=== PATIENT | male | born 1980 | race Caucasian/White ===

== ENCOUNTER → 2016-05-07 | Outpatient (CLI) | payer OTHER ==
[~2016-05-07] MED LIST: ACET-93 PO; CATHETER FLUSH 10 ML SYR IV PRN; CLIN150C17 PO; CYCL10TA9 PO; DULO60CA6 PO; FAMO20TA5 PO; HYDR50CA PO; IBP800T PO; IOHEXOL 350 MG/ML 100 ML (OMNIPAQUE 350) VIAL IV ONE; LODINE PO; NAPR550T PO; NS 100 ML (IVPB) BAG IV ONE; ONDN4T PO; RANI-515 PO; SCR1T1 PO; TRAM50TA2 PO; TRM50T PO
[2016-05-07 10:10] LABS: ANION GAP 9 MMOL/L (5-14); BLOOD UREA NITROGEN 12 MG/DL (7-18); BUN/CREATININE RATIO 12; CALCIUM 9.1 MG/DL (8.5-10.1); CARBON DIOXIDE 24 MMOL/L (21-32); CHLORIDE 107 MMOL/L (98-107); CREATININE SERUM 1.03 MG/DL (0.60-1.30); GFR ESTIMATED > 60; GLUCOSE 123 MG/DL (70-105); POTASSIUM 3.5 MMOL/L (3.6-5.0); SODIUM 140 MMOL/L (135-145)
--- NOTE | 2016-05-07 12:19 | Diagnostic Imaging Report ---
PROCEDURE: CT chest with contrast only. TECHNIQUE: Multiple contiguous axial images were obtained through the chest after administration of intravenous contrast. INDICATION: COPD, emphysema. History of VSD repair. 75 mL of Omnipaque 350 is administered intravenously. COMPARISON: 09/16/2015. FINDINGS: The aortic root at the sinus level is dilated at 4.7 cm. The heart size is normal. The rest of the thoracic aorta is normal in caliber. No pericardial effusion. Sternotomy wires with healed sternotomy seen with slight deformity of the sternum, possibly pre-existing congenital pectus excavatum related, similar to 03/03/2015, exam. There is no mediastinal mass. No significantly enlarged hilar, mediastinal, or axillary lymph nodes are seen. A 1-cm elongated nodular density in the posterior lateral aspect of the right upper lobe, axial image 20, is seen stable from prior exams including 03/03/2015, and other prior studies. Also focal scarring in the right lung base is noted. There is no significant consolidation or lung mass seen. There is no pleural effusion. Sections in the upper abdomen demonstrate no significant abnormality. IMPRESSION: 1. Stable dilatation of the aortic root at the sinus level measuring 4.7 cm in diameter similar to February 2015 exam. 2. Nodular densities in the right lung base and the right upper lobe are stable from multiple prior exams including 2013 study compatible with scarring. 3. Healed sternotomy and pectus excavatum deformity seen in the anterior chest wall. Dictated by: Dictated on workstation # [id number]
--- NOTE | 2016-05-10 09:29 | ECHOCARDIOGRAPHY REPORT ---
PROCEDURE PHYSICIAN: CARLY BARRAGAN DATE OF PROCEDURE: 05/07/2016 TWO DIMENSIONAL ECHOCARDIOGRAM REPORT PRIMARY PHYSICIAN: Dr. Jimenez OTHER PHYSICIAN: Fabiana Rivera APRN REFERRING PHYSICIAN: ORDERING PHYSICIAN: Lachelle Meyer APRN INDICATION FOR THE PROCEDURE: 1. Shortness of breath. 2. History of VSD repair. 3. Pectus excavatum. MEASUREMENTS DERIVED VALUES LV DIAMETER (LAX) NORMALS NORMALS Diastolic 4.5 (3.6-5.2) Eject. Fract. (60%+/-6%) Systolic (2.3-3.9) Diastolic Vol. % Shortening (0.22-0.42) Systolic Vol. Aortic Root 4.1 IVS THICKNESS Diastolic 0.7 (0.6-1.1) LVPW THICKNESS Diastolic 1.1 (0.6-1.1) LA DIAMETER Systolic 2.5 (2.1-3.7) DESCRIPTION: Two-dimensional echocardiography shows normal global left ventricular systolic function with normal regional wall motion. Left ventricular ejection fraction is approximately 55 to 60%. Aortic, mitral, and tricuspid valve leaflets show good leaflet excursion. Doppler imaging shows trivial to mild tricuspid regurgitation. Pulmonary artery systolic pressure is estimated to be approximately 25 mmHg. There is no Doppler evidence of any significant valvular stenosis. There is no evidence of significant intracardiac shunt on this transthoracic echocardiographic study. 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 CONCLUSIONS: 1. Normal global left ventricular systolic function with an ejection fraction of approximately 55 to 60% 2. Mild enlargement of the aortic root. 3. Slight displacement of the tricuspid valve towards the apex, suggesting mild Ebstein's anomaly without any other significant associated issues. 4. No evidence of any significant intracardiac shunt on this transthoracic echocardiographic study. The patient has a history of septal defect repair (reportedly ventricular septal defect repair). 5. No evidence of any significant valvular stenosis. 6. Trivial to mild tricuspid regurgitation. 7. Pulmonary artery systolic pressure is estimated to be approximately 25 mmHg. Job ID: [id number] Dictated Date: 05/09/2016 11:38:39 Operating Room Assistant Date: 05/10/2016 09:20:05 / blanquita ANDERSON
== END ==
LOC: RAD 09:34
PROVIDERS: ATTEND Nurse Practitioner Family
DX: I77.89 Other specified disorders of arteries and arterioles (principal); Q67.6 Pectus excavatum; J43.8 Other emphysema; Z98.890 Other specified postprocedural states
CPT/HCPCS: 36415; 71260; 80048; 93306

== ENCOUNTER → 2016-05-28 | Outpatient (CLI) | payer OTHER ==
[~2016-05-28] MED LIST changes: -CATHETER FLUSH 10 ML SYR IV PRN; -IOHEXOL 350 MG/ML 100 ML (OMNIPAQUE 350) VIAL IV ONE; -NS 100 ML (IVPB) BAG IV ONE; +RT-ALBUTEROL SULF 2.5 MG/3 ML PRE-MIX VIAL INH ONE
== END ==
LOC: RT 12:40
PROVIDERS: ATTEND Surgery
DX: Z02.71 Encounter for disability determination (principal)
CPT/HCPCS: 94060; 94640; 94729

== ENCOUNTER → 2017-05-25 | Outpatient (CLI) | payer SELFPAY ==
[~2017-05-25] MED LIST changes: -RT-ALBUTEROL SULF 2.5 MG/3 ML PRE-MIX VIAL INH ONE
[2017-05-25 14:22] LABS: BUN/CREATININE RATIO 9; CALCIUM 9.5 MG/DL (8.5-10.1); CARBON DIOXIDE 28 MMOL/L (21-32); CHLORIDE 105 MMOL/L (98-107); CREATININE SERUM 1.05 MG/DL (0.60-1.30); GFR ESTIMATED > 60; GLUCOSE 97 MG/DL (70-105); POTASSIUM 4.5 MMOL/L (3.6-5.0); SODIUM 138 MMOL/L (135-145)
== END ==
LOC: LAB 13:44
PROVIDERS: ATTEND Nurse Practitioner Family
DX: I77.89 Other specified disorders of arteries and arterioles (principal)
CPT/HCPCS: 36415; 80048

== ENCOUNTER → 2017-05-27 | Outpatient (CLI) | payer SELFPAY ==
[~2017-05-27] MED LIST changes: +CATHETER FLUSH 10 ML SYR IV PRN; +IOHEXOL 350 MG/ML 100 ML (OMNIPAQUE 350) VIAL IV ONE; +NS 250 ML (IVPB) BAG IV ONE
--- NOTE | 2017-05-27 09:14 | Diagnostic Imaging Report ---
PROCEDURE: CT chest with contrast only. TECHNIQUE: Multiple contiguous axial images were obtained through the chest after administration of intravenous contrast. INDICATION: Followup ascending aortic enlargement. Comparison is made with prior CT chest from 05/07/2016. No axillary, hilar or mediastinal lymphadenopathy is seen. No pericardial or pleural fluid is detected. Dilatation of the aortic root is again noted, measuring approximately 4.8 cm AP dimension in the axial plane, stable. Mid ascending aorta is approximately 3.5 cm, stable. No dissection is identified. The aortic arch and descending thoracic aorta are normal in caliber. Parenchymal evaluation again demonstrates slightly elongated irregular density in the posterior lateral right upper lobe, image 15 measuring 8-9 mm in size. This is similar to prior exam. There is a linear density in the left lower lobe, similar to prior exam and likely scarring. The density in the posterior lateral right lower lobe is also stable and likely scarring. No new mass is seen. The upper abdomen is unremarkable. IMPRESSION: Stable CT of the chest when compared with prior examination from 05/07/2016. Dictated by: Dictated on workstation # [id number]
== END ==
LOC: RAD 08:23
PROVIDERS: ATTEND Nurse Practitioner Family
DX: I77.89 Other specified disorders of arteries and arterioles (principal); J43.8 Other emphysema; Q67.6 Pectus excavatum
CPT/HCPCS: 71260

== ENCOUNTER → 2017-07-05 | Outpatient (CLI) | payer OTHER ==
[~2017-07-05] MED LIST changes: -CATHETER FLUSH 10 ML SYR IV PRN; -IOHEXOL 350 MG/ML 100 ML (OMNIPAQUE 350) VIAL IV ONE; -NS 250 ML (IVPB) BAG IV ONE
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
== END ==
LOC: RAD 09:53
PROVIDERS: ATTEND Nurse Practitioner Family
DX: M47.816 Spondylosis without myelopathy or radiculopathy, lumbar region (principal); V89.2XXD Person injured in unspecified motor-vehicle accident, traffic, subsequent encounter
CPT/HCPCS: 72148

== ENCOUNTER 2020-08-26 06:41 | Day surgery (SDC) | payer MEDICAID ==
[2020-08-26] VITALS (11 sets, daily range): BP systolic 134–152; BP diastolic 53–99
[~2020-08-26] VITALS: Ht 167 cm; Wt 78.0 kg
[~2020-08-26 06:41] MED LIST changes: -CLIN150C17 PO; +CLIN150C18 PO; -RANI-515 PO; +RANI-609 PO
[2020-08-26] MEDS ORDERED: HEParin (CATH LAB) 2,000 ML IV ONE (06:46)
[2020-08-26] MEDS ORDERED: NS IV 1000 ML 1,000 ML ONE (06:46)
[2020-08-26] MEDS ORDERED: LIDOCAINE 1% INJ 20 ML 20 ML VIAL ONE (06:46)
[2020-08-26] MEDS ORDERED: NS IV 1000 ML 1,000 ML IV SCH ×2 (07:00→10:00)
[2020-08-26 07:20] LABS: HEMATOCRIT 44 % (40-54); HEMOGLOBIN 15.5 g/dL (13.3-17.7); MEAN CORPUSCULAR HEMOGLOBIN 29 pg (25-34); MEAN CORPUSCULAR HGB CONC 35 g/dL (32-36); MEAN CORPUSCULAR VOLUME 83 fL (80-99); MEAN PLATELET VOLUME 8.6 fL (9.0-12.2); PLATELET COUNT 202 10^3/uL (130-400); WHITE BLOOD COUNT 6.9 10^3/uL (4.3-11.0)
[2020-08-26 07:34] LABS: PROTHROMBIN TIME PATIENT 13.6 SEC (12.2-14.7)
[2020-08-26] MEDS ORDERED: OMEP20CA18 PO (07:38)
[2020-08-26] MEDS ORDERED: ASPI-999 PO (07:38)
[2020-08-26] MEDS ORDERED: RT-ALBUINH IH (07:38)
[2020-08-26] MEDS ORDERED: BUDE10.7 IH (07:38)
[2020-08-26] MEDS ORDERED: ACET500P24 PO (07:38)
[2020-08-26 07:43] LABS: ALANINE AMINOTRANSFERASE 31 U/L (0-55); ALBUMIN 4.5 GM/DL (3.2-4.5); ALKALINE PHOSPHATASE 84 U/L (40-136); BILIRUBIN,TOTAL 0.9 MG/DL (0.1-1.0); BUN/CREATININE RATIO 11; CARBON DIOXIDE 26 MMOL/L (21-32); CHLORIDE 103 MMOL/L (98-107); CHOLESTEROL 218 MG/DL (< 200); CREATININE SERUM 1.14 MG/DL (0.60-1.30); GFR ESTIMATED > 60; GLUCOSE 92 MG/DL (70-105); HDL CHOLESTEROL 42 MG/DL (40-60); POTASSIUM 4.1 MMOL/L (3.6-5.0); SODIUM 139 MMOL/L (135-145); TOTAL PROTEIN 7.4 GM/DL (6.4-8.2); TRIGLYCERIDES 150 MG/DL (<150); VLDL CHOLESTEROL 30 MG/DL (5-40)
[2020-08-26] MEDS ORDERED: fentaNYL INJ 100 MCG/2 ML AMP ONE (07:45)
[2020-08-26] MEDS ORDERED: MIDAZOLAM 5 MG/5 ML (VERSED) VIAL ONE (07:45)
--- NOTE | 2020-08-26 09:55 | Cardiac Procedure Note-CS/ASA ---
Pre-Procedure Note Pre-Op Procedure Note H&P Reviewed The H&P was reviewed, patient examined and no changes noted. Date H&P Reviewed: Aug 26, 2020 Time H&P Reviewed: 09:00 Conscious Sedation Pre-Proced Time 09:00 ASA Score 3 For ASA 3 and 4: Consider anesthesia and medical clearance. Also, for patients with a history of failed moderate sedation consider anesthesia. Airway Lungs Heart ASA score ASA 1: a normal healthy patient ASA 2: a patient with a mild systemic disease (mid diabetes, controlled hypertension, obesity ASA 3: a patient with a severe systemic disease that limits activity (angina, COPD, prior Myocardial infarction) ASA 4: a patient with an incapacitating disease that is a constant threat to life (CHF, renal failure) ASA 5: a moribund patient not expected to survive 24 hrs. (ruptured aneurysm) ASA 6: a declared brain- patient whose organs are being harvested. For emergent operations, add the letter E after the classification Mallampati Classification Grade 2 Sedation Plan Analgesia, Amnesia, Plan communicated to team members, Discussed options with patient/fam, Discussed risks with patient/fam The patient is an appropriate candidate to undergo the planned procedure, sedation, and anesthesia. The patient immediately re-assessed prior to indication. CARLY BARRAGAN MD FACP FAC CCDS Aug 26, 2020 09:55
[2020-08-26] MEDS ORDERED: PATIENT MAY USE OWN MEDS, ALL PO SCH (10:00)
--- NOTE | 2020-08-26 10:00 | Discharge Inst-Cardiology ---
Discharge Inst-Cardiac Discharge Medications Continued Medications: Acetaminophen (Tylenol Extra Strength) 500 Mg Powd.pack 1000 MG PO Q6H, EACH Albuterol Sulfate (Proair Hfa) 1 Puff Puff 2 PUFF IH Q4H, PUFF 1 PUFF = 90 MCG Budesonide/Glycopyr/Formoterol (Breztri Aerosphere Inhaler) 10.7 Gm Hfa.aer.ad 160 GM IH, GM Omeprazole (Omeprazole) 20 Mg Capsule.dr 40 MG PO DAILY, CAP Discontinued Medications: Aspirin (Aspirin) 81 Mg Tab.chew 81 MG PO DAILY, TAB CARLY BARRAGAN MD FACP FACC CCDS Aug 26, 2020 10:00
--- NOTE | 2020-08-26 10:00 | Discharge Inst-Post CATH ---
Discharge Inst-CATH/EP Post Cardiac Cath/EP D/C Inst Follow Up/Plan F/u with Dr Sainz in 2 weeks ACTIVITY * Go Home directly and rest. * Limit activity of the leg (or wrist if it was used) for 7 days including aerobics, swimming, jogging, bicycling, etc. * Restrict stair-climbing for 7 days if possible, if not, climb up with your n on-cath leg, then bring together on the same step. * Avoid lifting, pushing, pulling or excessive movement of the affected ex tremity for 7 days. * Customary sexual activity may be resumed after 2 days-use caution not to use a position that strains or causes pain to the affected extremity. * No driving for 24 hours. * NO SMOKING. * Avoid straining for bowel movements for 7 days. * Gentle walking on level ground is allowed. * Returning to work will depend on the type of procedure and the results. Your doctor will discuss this with you. CALL YOUR DOCTOR FOR ANY OF THE FOLLOWING: *If bleeding from the puncture site occurs- Apply gentle pressure to site with clean cloth and call your doctor or EMS. * If a knot or lump forms under the skin, increases in size, or causes pain. * If bruising appears to be worsening or moving further down your leg instead of disappearing. * Temperature above 101 F. CARE OF YOUR GROIN INCISION; * Bruising or purple discoloration of the skin near the puncture site is common. * You may shower only, no bathtub bathing for 5 days. Be careful to avoid slipping as your leg may feel stiff. * If a closure device was used on your femoral artery, please see the attached guide regarding care of the device and your leg. * Leave dressing on FOR 24 hours. CARE OF YOUR WRIST INCISION; * Bruising or purple discoloration of the skin near the puncture site is common. * You may shower. * DO NOT submerge wrist. * Leave dressing on FOR 24 hours. CARLY SAINZ MD [facility] Aug 26, 2020 10:00
--- NOTE | 2020-08-26 11:51 | CARDIAC CATHETERIZATION ---
DATE OF SERVICE: 08/26/2020 CARDIAC CATHETERIZATION REPORT INDICATION FOR PROCEDURE: The patient is a 40-year-old gentleman, who has a history of ventricular septal defect repair at age 19. He has been experiencing chest discomfort for the last several weeks to months. The symptoms have been progressive. They are related to exertion on most occasions. They have been associated with increasing shortness of breath as well. Cardiac catheterization was carried out today after having obtained an informed consent. DESCRIPTION OF PROCEDURE: He was brought to the cardiac catheterization laboratory in a fasting state. Right groin was prepared and draped in the usual sterile fashion. Lidocaine 1% was used as local anesthesia. Modified Seldinger technique was used to advance a 5-Mauritian sheath into right femoral artery. A 5-Mauritian JL4 catheter was used for left coronary angiography, 5-Mauritian JR4 catheter was not resulting in good engagement. We were able to subselectively view the right coronary with the aortic root angiography. We used a 5-Mauritian pigtail catheter for left heart catheterization and left ventricular angiography. The patient tolerated the procedure well. HEMODYNAMICS: Left ventricular end-diastolic pressure following coronary angiography was 10 mmHg. There is no significant pressure gradient on pullback across the aortic valve. CORONARY ANGIOGRAPHY: Left main coronary artery, left anterior descending artery, left coronary artery, right coronary artery do not exhibit angiographically significant coronary artery disease. LEFT VENTRICULAR ANGIOGRAPHY: Left ventricular angiography was carried out in the right anterior oblique projection. Global left ventricular systolic function appears to be within normal limits. Left ventricular ejection fraction approximately 55% to 60%. AORTIC ROOT ANGIOGRAPHY: Aortic root angiography was performed, mainly to visualize the right coronary artery. We were able to see the right coronary artery in its entire extent and it does not seem to have significant disease. There is a small caliber vessel. There appears to be codominant with the left circumflex artery. There was no significant aortic regurgitation. Aortic valve leaflets exhibit at good leaflet excursion. There was no evidence of aortic root or ascending aortic dissection. CONCLUSIONS: 1. No angiographically significant coronary artery disease. 2. Normal global left ventricular systolic function with normal regional wall motion and with left ventricular ejection fraction of 55% to 60%. 3. Normal left ventricular end-diastolic pressure. Job ID: [id number] DocumentID: [id number] Dictated Date: 08/26/2020 09:54:26 Inventory Control Clerk Date: 08/26/2020 11:50:24 Dictated By: CARLY BARRAGAN MD, MA, FACP, FACC,
== END 2020-08-26 13:20 | disposition home or self-care (01) ==
LOC: CATH 06:41 → SDC 10:21 → CATH 13:20
PROVIDERS: ATTEND Internal Medicine Cardiovascular Disease
DX: R07.89 Other chest pain (principal); M54.9 Dorsalgia, unspecified; G89.29 Other chronic pain; I35.8 Other nonrheumatic aortic valve disorders; F17.220 Nicotine dependence, chewing tobacco, uncomplicated; Z79.82 Long term (current) use of aspirin; Z79.899 Other long term (current) drug therapy; Z83.3 Family history of diabetes mellitus
CPT/HCPCS: 36221; 36415; 80053; 80061; 85027; 85610; 85730; 87081; 93458

== ENCOUNTER → 2020-09-05 | Outpatient (CLI) | payer MEDICAID ==
[~2020-09-05] MED LIST changes: +ACET500P24 PO; +ASPI-999 PO; +BUDE10.7 IH; +OMEP20CA18 PO; +RT-ALBUINH IH
== END ==
LOC: LABNPT 06:49
PROVIDERS: ATTEND Nurse Practitioner Family
DX: G47.30 Sleep apnea, unspecified (principal); G47.50 Parasomnia, unspecified; G47.10 Hypersomnia, unspecified

== ENCOUNTER → 2020-09-08 | Outpatient (CLI) | payer MEDICAID ==
[~2020-09-08] MED LIST changes: +RT-ALBUTEROL SULF 2.5 MG/3 ML PRE-MIX VIAL INH ONE
== END ==
LOC: RT 16:00
PROVIDERS: ATTEND Nurse Practitioner Family
DX: Z13.83 Encounter for screening for respiratory disorder NEC (principal); R06.00 Dyspnea, unspecified
CPT/HCPCS: 94060; 94726; 94729

== ENCOUNTER → 2020-09-18 | Outpatient (CLI) | payer MEDICAID ==
[~2020-09-18] MED LIST changes: +HOLD METFORMIN - RECEIVED CONTRAST 20 ML VIAL IV SCH; +IOHEXOL 350 MG/ML 100 ML (OMNIPAQUE 350) VIAL IV ONE; +NS 100 ML (IVPB) BAG IV ONE; -RT-ALBUTEROL SULF 2.5 MG/3 ML PRE-MIX VIAL INH ONE
== END ==
LOC: CARD 11:15
PROVIDERS: ATTEND Internal Medicine Cardiovascular Disease
DX: I08.0 Rheumatic disorders of both mitral and aortic valves (principal)
CPT/HCPCS: 93306

== ENCOUNTER → 2020-09-23 | Outpatient (CLI) | payer MEDICAID ==
[~2020-09-23] MED LIST changes: +CATHETER FLUSH 10 ML SYR IV PRN
--- NOTE | 2020-09-23 11:27 | Diagnostic Imaging Report ---
EXAMINATION: CT angiography of the chest. TECHNIQUE: Contrast enhanced thin section helical images were obtained through the chest with intravenous contrast timed for the optimal opacification of the arterial structures per CTA protocol. Post-processing, reconstructions and interpretation of angiographic images of the vessels was performed. 3D MIP reconstructions were performed and reviewed. All CT scans use one or more of the following dose optimizing techniques: automated exposure control, MA and/or KvP adjustment based on a patient size and exam type, or iterative reconstruction. HISTORY: Chest pain COMPARISON: 05/27/2017 FINDINGS: Aortic root is dilated measuring 4.7 x 4.6 x 4.8 cm from commissure to cusp. It is stable in size from 09/04/2012. The ascending aorta above the sinotubular junction is normal in caliber measuring 3.5 cm. The descending aorta is normal in caliber. There is no edema or pneumonia. No pleural effusion. No pneumothorax. No suspicious nodules. There is a stable 11 x 6 mm nodule in the right upper lobe. There is mild bibasilar atelectasis. There is no axillary or supraclavicular lymphadenopathy. There is no mediastinal lymphadenopathy. Heart size is normal. There are no coronary artery calcifications. No pericardial effusion. Aorta is normal in caliber. Limited views of the upper abdomen show stable high attenuating left renal lesion likely representing hemorrhagic cyst. It is stable from exam dated 09/04/2012. There are no suspicious osseus lesions. There has been a median sternotomy. IMPRESSION: 1. Stable aortic root aneurysm measuring 4.7 x 4.6 x 4.8 cm. Dictated by: Dictated on workstation # [id number]
== END ==
LOC: RAD 10:15
PROVIDERS: ATTEND Internal Medicine Cardiovascular Disease
DX: I71.2 Thoracic aortic aneurysm, without rupture (principal)
CPT/HCPCS: 71275

== ENCOUNTER 2020-12-11 10:21 | Outpatient (RCR) | payer MEDICAID ==
[~2020-12-11 10:21] MED LIST changes: -CATHETER FLUSH 10 ML SYR IV PRN; -CLIN150C18 PO; +CLIN150C20 PO; -HOLD METFORMIN - RECEIVED CONTRAST 20 ML VIAL IV SCH; -IOHEXOL 350 MG/ML 100 ML (OMNIPAQUE 350) VIAL IV ONE; -NS 100 ML (IVPB) BAG IV ONE
== END 2021-01-11 | disposition home or self-care (01) ==
PROVIDERS: ATTEND Nurse Practitioner Family
DX: J43.9 Emphysema, unspecified (principal)

== ENCOUNTER → 2020-12-30 | Outpatient (CLI) | payer SELFPAY | LOC: LABNPT 06:42 | PROVIDERS: ATTEND Nurse Practitioner Family | DX: Z20.822 Contact with and (suspected) exposure to COVID-19 (principal) | CPT/HCPCS: 87635 ==

== ENCOUNTER 2021-01-03 20:19 | Outpatient (CLI) | payer OTHER | END 2021-01-04 07:22 | disposition home or self-care (01) | LOC: SLEEP 20:19 | PROVIDERS: ATTEND Nurse Practitioner Family | DX: Z01.89 Encounter for other specified special examinations (principal); G47.30 Sleep apnea, unspecified; G47.50 Parasomnia, unspecified; G47.10 Hypersomnia, unspecified; J43.9 Emphysema, unspecified; Z72.0 Tobacco use | CPT/HCPCS: 95810 ==

== ENCOUNTER → 2022-02-10 | Outpatient (CLI) | payer OTHER ==
[~2022-02-10] MED LIST changes: +ALBU8.5H6 IH; +CATHETER FLUSH 10 ML SYR IV PRN; +CYCL10TA25 PO; +HOLD METFORMIN - RECEIVED CONTRAST 20 ML VIAL IV SCH; +IOHEXOL 350 MG/ML 100 ML (OMNIPAQUE 350) VIAL IV ONE; +NS 100 ML (IVPB) BAG IV ONE; -RT-ALBUINH IH
--- NOTE | 2022-02-10 16:00 | Diagnostic Imaging Report ---
PROCEDURE: CT angiography of the chest with contrast. TECHNIQUE: Multiple contiguous axial images were obtained through the chest after uneventful bolus administration of intravenous contrast. 3D reconstructed CTA MIP acquisitions were also performed. Auto Exposure Controls were utilized during the CT exam to meet ALARA standards for radiation dose reduction. INDICATION: Aortic root dilation. Correlation is made with prior CT from 09/23/2020. Aortic root remains dilated but stable measuring 4.6 cm measured in the coronal plane. Thyroid appears stable measuring 5.0 x 4.5 cm compared with 4.9 x 4.4 cm when measured in the axial plane. Aortic arch and descending thoracic aorta are normal caliber. There is no dissection. There are changes of median sternotomy. No axillary, hilar or mediastinal lymphadenopathy is detected. No pericardial or pleural fluid is detected. Parenchymal evaluation does show some linear atelectasis or scarring in the left lower lobe. No mass or infiltrate is detected. Upper abdomen is unremarkable. IMPRESSION: Stable dilatation of the aortic root when compared with exam from 09/23/2020. Dictated by: Dictated on workstation # [id number]
== END ==
LOC: RAD 02-08 10:52
PROVIDERS: ATTEND Nurse Practitioner Family
DX: I77.810 Thoracic aortic ectasia (principal)
CPT/HCPCS: 71275